=== PATIENT | male | born 1945 | race Caucasian/White ===

== ENCOUNTER 2018-12-16 11:44 | Emergency (ER) | payer OTHER ==
[~2018-12-16] VITALS: Ht 172.7 cm; Wt 111.1 kg
[~2018-12-16 11:44] MED LIST: ALB2.5IS; DOXY100T51; FURO20TA3; IPRA0.035; LEVO75TA42; LISI-646
[2018-12-16 12:59] LABS: Basophils # (auto) 0.1 uL; Basophils % (auto) 0.8 % (0.0-2.0); Eosinophils # (auto) 0.4 uL; Eosinophils % (auto) 2.9 % (0.0-7.0); Hematocrit 47.4 % (41.0-53.0); Hemoglobin 15.1 g/dL (13.5-17.5); Lymphocytes # (auto) 2.6 uL; Lymphocytes % (auto) 20.5 % (10.0-50.0); Mean Corpuscular Hgb Conc. 31.9 g/dL (32.0-36.0); Mean Corpuscular Volume 87.8 fL (80.0-100.0); Monocytes # (auto) 1.2 uL; Monocytes % (auto) 9.7 % (0.0-12.0); Neutrophils # (auto) 8.4 uL; Neutrophils % (auto) 66.1 % (37.0-80.0); Nucleated Red Blood Cells % 0.1 %; Platelet Count (auto) 262 10^3/uL (140-450); Red Cell Distribution Width 14.3 % (11.8-14.3); White Blood Cell 12.7 10^3/uL (4.4-10.8)
[2018-12-16 13:16] LABS: Chloride 105 mmol/L (98-107); Potassium 4.2 mmol/L (3.5-5.1); Sodium 139 mmol/L (136-145)
[2018-12-16 13:25] LABS: Alanine Aminotransferase 23 U/L (16-61); Albumin 3.3 g/dL (3.4-5.0); Alkaline Phosphatase 122 U/L (45-117); Anion Gap 8 (5-15); Aspartate Aminotransferase 10 U/L (15-37); BUN/Creatinine Ratio 22.1; Bilirubin, Total 0.4 mg/dL (0.2-1.0); Blood Urea Nitrogen 29 mg/dL (7-18); Calcium 9.4 mg/dL (8.5-10.1); Carbon Dioxide 26 mmol/L (21-32); GFR African American 69 mL/min; GFR Non-African American 57 mL/min; Glucose 140 mg/dL (74-106); Total Protein 7.3 g/dL (6.4-8.2)
[2018-12-16] MEDS ORDERED: FUROSEMIDE 20 MG/2 ML VIAL IV ONE (15:15)
[2018-12-16 15:58] VITALS: BP 120/57
== END 2018-12-16 16:13 ==
LOC: ER 11:44 → EDBD 11:44 → ER 16:13
DX: R06.03 Acute respiratory distress (principal); I50.9 Heart failure, unspecified; J44.9 Chronic obstructive pulmonary disease, unspecified; I25.2 Old myocardial infarction; Z86.39 Personal history of other endocrine, nutritional and metabolic disease
CPT/HCPCS: 36415; 71045; 80053; 83880; 84484; 85025; 93005; 96374; 99285; J1940

== ENCOUNTER 2020-08-24 15:33 | Emergency (ER) | payer OTHER ==
[~2020-08-24] VITALS: Ht 172.7 cm; Wt 113.4 kg
[~2020-08-24 15:33] MED LIST changes: -LISI-646; +LISI20TA28
[2020-08-24 16:05] VITALS: BP 158/71
[2020-08-24] MEDS ORDERED: METHOCARBAMOL 500 MG TAB PO ONE (16:45)
[2020-08-24] MEDS ORDERED: KETOROLAC TROMETH 60MG/2ML VIAL IM ONE (16:45)
== END 2020-08-24 17:47 | disposition home or self-care (01) ==
LOC: EDBD 15:33 → ER 15:33
DX: M54.16 Radiculopathy, lumbar region (principal); J44.9 Chronic obstructive pulmonary disease, unspecified; E11.9 Type 2 diabetes mellitus without complications; Z79.899 Other long term (current) drug therapy
CPT/HCPCS: 96372; 99283; J1885

== ENCOUNTER 2022-03-14 17:33 | Inpatient (IN) | payer OTHER ==
[~2022-03-14] VITALS: Ht 165.1 cm; Wt 110.0 kg
[2022-03-14 18:31] LABS: Basophils # (auto) 0.2 10 ^3/uL (0-0.2); Basophils % (auto) 1.3 % (0.0-2.0); Eosinophils # (auto) 0.2 10 ^3/uL (0-0.8); Eosinophils % (auto) 1.5 % (0.0-7.0); Hematocrit 45.1 % (41.0-53.0); Hemoglobin 14.3 g/dL (13.5-17.5); Lymphocytes # (auto) 3.2 10 ^3/uL (0.4-5.4); Lymphocytes % (auto) 25.5 % (10.0-50.0); Mean Corpuscular Hemoglobin 27.8 pg (28.0-32.0); Mean Corpuscular Hgb Conc. 31.7 g/dL (32.0-36.0); Mean Corpuscular Volume 87.6 fL (80.0-100.0); Monocytes # (auto) 1.1 10 ^3/uL (0-1.3); Monocytes % (auto) 9.1 % (0.0-12.0); Neutrophils # (auto) 7.8 10 ^3/uL (1.6-8.6); Neutrophils % (auto) 62.6 % (37.0-80.0); Red Blood Cells 5.15 10^6/uL (4.5-5.90); Red Cell Distribution Width 16.2 % (11.8-14.3); White Blood Cell 12.5 10^3/uL (4.4-10.8)
[2022-03-14 18:58] LABS: Albumin 3.4 g/dL (3.4-5.0); Calcium 8.8 mg/dL (8.5-10.1); Magnesium 1.8 mg/dL (1.6-2.6); Potassium 4.5 mmol/L (3.5-5.1)
[2022-03-14 19:01] LABS: Bilirubin, Total 0.4 mg/dL (0.2-1.0); Total Protein 6.5 g/dL (6.4-8.2)
[2022-03-14] MEDS ORDERED: TERBUTALINE SULFATE 1 MG/ML 1ML VIAL SC ONE (23:30)
[2022-03-14] MEDS ORDERED: IPRATROPIUM BROM 0.5 MG/2.5ML INH SOL NEB ONE (23:30)
[2022-03-14] MEDS ORDERED: methylPREDNISolone SOD SUCC 125 MG/2 ML VL IV ONE (23:30)
[2022-03-14] MEDS ORDERED: ALBUTEROL SULF 2.5 MG/0.5ML(0.5%) NEB SOLN NEB ONE (23:30)
[2022-03-15] MEDS ORDERED: DexAMETHasone SOD PHOS 10MG/1ML VIAL INJ ONE (01:06)
[2022-03-15] MEDS ORDERED: AZITHROMYCIN 250 MG TAB PO ONE (01:07)
[2022-03-15] MEDS ORDERED: ALBUTEROL SULF 2.5 MG/0.5ML(0.5%) NEB SOLN NEB ONE (01:45)
[2022-03-15] MEDS ORDERED: cefTRIAXone 1GM/50ML D5W 50 ML IV ONE (02:00)
[2022-03-15] MEDS ORDERED: ONDANSETRON HCL 4 MG/2 ML VIAL IV PRN (02:45)
[2022-03-15] MEDS ORDERED: DEXTROSE (50%) 50ML SYRG IV PRN (02:45)
[2022-03-15] MEDS ORDERED: NITROGLYCERIN 0.4 MG SL TAB SL PRN (02:45)
[2022-03-15] MEDS ORDERED: ACETAMINOPHEN 325 MG TAB PO PRN (02:45)
[2022-03-15] MEDS ORDERED: MORPHINE SULFATE INJ 2 MG/ml SYRG IV PRN (02:45)
[2022-03-15 02:50] VITALS: BP 114/65
[2022-03-15 04:15] LABS: Urine Bacteria NONE SEEN /hpf (None Seen); Urine Blood Negative /uL (Negative); Urine Specific Gravity 1.027 (1.001-1.035); Urine WBC <1 /hpf (0 - 3)
[2022-03-15] MEDS: ALBUTEROL SULF 2.5 MG/0.5ML(0.5%) NEB SOLN NEB SCH ×3 (06:10→18:25)
[2022-03-15] MEDS: LEVOTHYROXINE SODIUM 112 MCG TAB PO SCH (06:57)
[2022-03-15] MEDS: InsuLIN REG 1unit/0.01ml Soln (100units/ml) SC SCH ×4 (06:59→22:30)
[2022-03-15] MEDS: ACCU-CHEK COMFORT CURVE STRIP VI SCH ×4 (07:05→22:25)
[2022-03-15] MEDS: methylPREDNISolone SOD SUCC 125 MG/2 ML VL IV SCH ×2 (09:56→22:14)
[2022-03-15] MEDS: LOSARTAN POTASSIUM 25 MG TAB PO SCH (09:57)
[2022-03-15] MEDS ORDERED: MAGNESIUM SULFATE 1GM/100ML 100 ML IV ONE (14:15)
[2022-03-15 17:00] VITALS: BP 169/78
[2022-03-15] MEDS ORDERED: THROAT LOZENGES(CEPASTAT) MT PRN (18:30)
[2022-03-15] MEDS ORDERED: hydrALAZINE HCL 20 MG/ML VL IV PRN (19:00)
[2022-03-15 22:00] VITALS: BP 106/44
[2022-03-15] MEDS: ATORVASTATIN 20 MG TAB PO SCH (22:14)
[2022-03-15] MEDS: cefTRIAXone 1GM/50ML D5W 50 ML IV SCH (22:18)
[2022-03-16] VITALS (7 sets, daily range): BP systolic 123–161; BP diastolic 54–85
[2022-03-16 05:31] LABS: Albumin 3.2 g/dL (3.4-5.0); Potassium 5.4 mmol/L (3.5-5.1)
[2022-03-16 05:34] LABS: BUN/Creatinine Ratio 33.3; Bilirubin, Total 0.4 mg/dL (0.2-1.0); Total Protein 6.6 g/dL (6.4-8.2)
[2022-03-16] MEDS: LEVOTHYROXINE SODIUM 112 MCG TAB PO SCH (06:20)
[2022-03-16] MEDS: ACCU-CHEK COMFORT CURVE STRIP VI SCH ×4 (06:21→21:34)
[2022-03-16] MEDS: InsuLIN REG 1unit/0.01ml Soln (100units/ml) SC SCH ×4 (06:23→21:51)
[2022-03-16 06:30] LABS: Basophils # (auto) 0 10 ^3/uL (0-0.2); Basophils % (auto) 0.1 % (0.0-2.0); Eosinophils # (auto) 0 10 ^3/uL (0-0.8); Hematocrit 40.1 % (41.0-53.0); Hemoglobin 13.8 g/dL (13.5-17.5); Lymphocytes # (auto) 1.2 10 ^3/uL (0.4-5.4); Lymphocytes % (auto) 9.8 % (10.0-50.0); Mean Corpuscular Hemoglobin 32.7 pg (28.0-32.0); Mean Corpuscular Hgb Conc. 34.4 g/dL (32.0-36.0); Mean Corpuscular Volume 95.2 fL (80.0-100.0); Monocytes # (auto) 0.4 10 ^3/uL (0-1.3); Monocytes % (auto) 3.4 % (0.0-12.0); Neutrophils # (auto) 10.5 10 ^3/uL (1.6-8.6); Neutrophils % (auto) 86.7 % (37.0-80.0); Red Blood Cells 4.21 10^6/uL (4.5-5.90); White Blood Cell 12.1 10^3/uL (4.4-10.8)
[2022-03-16] MEDS: ALBUTEROL SULF 2.5 MG/0.5ML(0.5%) NEB SOLN NEB SCH ×3 (06:41→19:07)
[2022-03-16] MEDS ORDERED: ENOXAPARIN SOD 40 MG/0.4 ML SYRINGE SC SCH (10:00)
[2022-03-16] MEDS: methylPREDNISolone SOD SUCC 125 MG/2 ML VL IV SCH ×2 (10:29→21:34)
[2022-03-16] MEDS: LOSARTAN POTASSIUM 25 MG TAB PO SCH (10:30)
[2022-03-16] MEDS ORDERED: AMIODARONE HCL 200 MG TAB PO ONE (16:00)
[2022-03-16] MEDS: cefTRIAXone 1GM/50ML D5W 50 ML IV SCH (21:33)
[2022-03-16] MEDS: APIXABAN 5 MG TAB PO SCH (21:34)
[2022-03-16] MEDS: ATORVASTATIN 20 MG TAB PO SCH (21:34)
[2022-03-17 05:33] VITALS: BP 124/62
[2022-03-17 05:37] LABS: Calcium 8.7 mg/dL (8.5-10.1)
[2022-03-17 05:46] LABS: Albumin 3.1 g/dL (3.4-5.0); BUN/Creatinine Ratio 35.3; Bilirubin, Total 0.3 mg/dL (0.2-1.0); Total Protein 6.2 g/dL (6.4-8.2)
[2022-03-17 06:26] LABS: Potassium 5.8 mmol/L (3.5-5.1)
[2022-03-17] MEDS: ALBUTEROL SULF 2.5 MG/0.5ML(0.5%) NEB SOLN NEB SCH ×2 (06:30→12:07)
[2022-03-17 06:31] LABS: Basophils # (auto) 0 10 ^3/uL (0-0.2); Basophils % (auto) 0.1 % (0.0-2.0); Eosinophils # (auto) 0 10 ^3/uL (0-0.8); Hematocrit 40.5 % (41.0-53.0); Hemoglobin 13.6 g/dL (13.5-17.5); Lymphocytes # (auto) 0.8 10 ^3/uL (0.4-5.4); Lymphocytes % (auto) 6.9 % (10.0-50.0); Mean Corpuscular Hemoglobin 31.7 pg (28.0-32.0); Mean Corpuscular Hgb Conc. 33.6 g/dL (32.0-36.0); Mean Corpuscular Volume 94.4 fL (80.0-100.0); Monocytes # (auto) 0.5 10 ^3/uL (0-1.3); Monocytes % (auto) 4.6 % (0.0-12.0); Neutrophils % (auto) 88.4 % (37.0-80.0); Nucleated Red Blood Cells % 0.2 %; Red Blood Cells 4.29 10^6/uL (4.5-5.90); Red Cell Distribution Width 16.6 % (11.8-14.3); White Blood Cell 11.3 10^3/uL (4.4-10.8)
[2022-03-17] MEDS: LEVOTHYROXINE SODIUM 112 MCG TAB PO SCH (06:53)
[2022-03-17] MEDS: ACCU-CHEK COMFORT CURVE STRIP VI SCH ×2 (06:53→12:16)
[2022-03-17] MEDS: InsuLIN REG 1unit/0.01ml Soln (100units/ml) SC SCH ×2 (06:55→12:28)
[2022-03-17 08:00] VITALS: BP 125/72
[2022-03-17] MEDS ORDERED: CALCIUM CHL 100MG/ML 1,000 MG in D5W 5% 100 ML IV ONE (08:45)
[2022-03-17] MEDS ORDERED: SODIUM BICARBONATE 8.4 % INJ 50ML VIAL IV ONE (08:45)
[2022-03-17] MEDS ORDERED: AZIT500T66 PO (08:47)
[2022-03-17] MEDS ORDERED: AMIO200T33 PO (08:47)
[2022-03-17] MEDS ORDERED: APIX5TAB PO (08:47)
[2022-03-17] MEDS ORDERED: METH4PAK PO (08:47)
[2022-03-17 09:00] VITALS: BP 125/72
[2022-03-17] MEDS: methylPREDNISolone SOD SUCC 125 MG/2 ML VL IV SCH (09:59)
[2022-03-17] MEDS: APIXABAN 5 MG TAB PO SCH (10:00)
[2022-03-17] MEDS: LOSARTAN POTASSIUM 25 MG TAB PO SCH (10:00)
[2022-03-17] MEDS ORDERED: AMIODARONE HCL 200 MG TAB PO SCH (10:00)
[2022-03-17 13:00] VITALS: BP 149/85
[2022-03-17] MEDS ORDERED: SODIUM ZIRCONIUM CYCL 10 GM PAK PO SCH (14:20)
[2022-03-17 14:45] VITALS: BP 149/85
== END 2022-03-17 15:15 | disposition home or self-care (01) | DRG 871 ==
LOC: ER 17:33 → EDBD 17:33 → TELE 03-15 02:44 → TELE-EAST 03-15 16:53
PROVIDERS: ADMIT Nurse Practitioner; ATTEND Family Medicine
DX: A41.9 Sepsis, unspecified organism (principal); I50.33 Acute on chronic diastolic (congestive) heart failure; J18.9 Pneumonia, unspecified organism; J96.21 Acute and chronic respiratory failure with hypoxia; I13.0 Hypertensive heart and chronic kidney disease with heart failure and stage 1 through stage 4 chronic kidney disease, or unspecified chronic kidney disease; J44.1 Chronic obstructive pulmonary disease with (acute) exacerbation; C34.92 Malignant neoplasm of unspecified part of left bronchus or lung; J44.0 Chronic obstructive pulmonary disease with (acute) lower respiratory infection; N17.9 Acute kidney failure, unspecified; Z68.41 Body mass index [BMI] 40.0-44.9, adult; E11.22 Type 2 diabetes mellitus with diabetic chronic kidney disease; E03.9 Hypothyroidism, unspecified; E11.40 Type 2 diabetes mellitus with diabetic neuropathy, unspecified; E66.01 Morbid (severe) obesity due to excess calories; E78.5 Hyperlipidemia, unspecified; N18.2 Chronic kidney disease, stage 2 (mild); Z20.822 Contact with and (suspected) exposure to COVID-19; I48.0 Paroxysmal atrial fibrillation; E87.5 Hyperkalemia; I25.10 Atherosclerotic heart disease of native coronary artery without angina pectoris; Z92.3 Personal history of irradiation; Z85.118 Personal history of other malignant neoplasm of bronchus and lung; Z85.820 Personal history of malignant melanoma of skin; I25.2 Old myocardial infarction; Z92.21 Personal history of antineoplastic chemotherapy
CPT/HCPCS: 36415; 71045; 80053; 81001; 82962; 83036; 83735; 83880; 84443; 84484; 85025; 85379; 93005; 93306; 93970; 94640; 96365; 96367; 96372; 96375; G0378; J0696; J1100; J1815; J7060

== ENCOUNTER 2022-03-29 03:34 | Emergency (ER) | payer OTHER ==
[~2022-03-29] VITALS: Ht 177.8 cm; Wt 110.0 kg
[~2022-03-29 03:34] MED LIST changes: +AMIO200T33 PO; +APIX5TAB PO; +AZIT500T66 PO; +METH4PAK PO
[2022-03-29] MEDS ORDERED: ALBUTEROL SULF 2.5 MG/0.5ML(0.5%) NEB SOLN NEB ONE ×2 (05:00→10:15)
[2022-03-29] MEDS ORDERED: IPRATROPIUM BROM 0.5 MG/2.5ML INH SOL NEB ONE (05:00)
[2022-03-29] MEDS ORDERED: methylPREDNISolone SOD SUCC 125 MG/2 ML VL IV ONE ×2 (05:00→10:30)
[2022-03-29 05:05] LABS: Basophils # (auto) 0.1 10 ^3/uL (0-0.2); Basophils % (auto) 0.6 % (0.0-2.0); Eosinophils # (auto) 0.2 10 ^3/uL (0-0.8); Eosinophils % (auto) 1.7 % (0.0-7.0); Hematocrit 39.9 % (41.0-53.0); Hemoglobin 13.4 g/dL (13.5-17.5); Lymphocytes # (auto) 1.4 10 ^3/uL (0.4-5.4); Lymphocytes % (auto) 14.6 % (10.0-50.0); Mean Corpuscular Hemoglobin 30.8 pg (28.0-32.0); Mean Corpuscular Hgb Conc. 33.5 g/dL (32.0-36.0); Monocytes # (auto) 0.9 10 ^3/uL (0-1.3); Monocytes % (auto) 9.7 % (0.0-12.0); Neutrophils # (auto) 7.1 10 ^3/uL (1.6-8.6); Neutrophils % (auto) 73.4 % (37.0-80.0); Red Blood Cells 4.34 10^6/uL (4.5-5.90); Red Cell Distribution Width 16.6 % (11.8-14.3); White Blood Cell 9.6 10^3/uL (4.4-10.8)
[2022-03-29] MEDS ORDERED: IOHEXOL 350 MG/ML 100ML IJ ONE (05:17)
[2022-03-29 05:24] LABS: Albumin 2.7 g/dL (3.4-5.0); Calcium 8.5 mg/dL (8.5-10.1); Potassium 4.9 mmol/L (3.5-5.1)
[2022-03-29 05:28] LABS: BUN/Creatinine Ratio 16.7; Bilirubin, Total 0.7 mg/dL (0.2-1.0); Total Protein 5.6 g/dL (6.4-8.2)
[2022-03-29] MEDS ORDERED: InsuLIN REG 1unit/0.01ml Soln (100units/ml) IV ONE (07:00)
[2022-03-29 10:00] VITALS: BP 104/69
[2022-03-29] MEDS ORDERED: PRED20TA2 PO (10:14)
== END 2022-03-29 11:30 | disposition short-term general hospital (02) ==
LOC: EDBD 03:34 → ER 03:38
DX: R07.89 Other chest pain (principal); J44.1 Chronic obstructive pulmonary disease with (acute) exacerbation; C34.90 Malignant neoplasm of unspecified part of unspecified bronchus or lung; I11.0 Hypertensive heart disease with heart failure; I50.9 Heart failure, unspecified; I25.2 Old myocardial infarction; E03.9 Hypothyroidism, unspecified; Z79.2 Long term (current) use of antibiotics; Z79.899 Other long term (current) drug therapy; Z88.8 Allergy status to other drugs, medicaments and biological substances
CPT/HCPCS: 36415; 71045; 71275; 80053; 82962; 84484; 85025; 93005; 94640; 96374; 96376; 99285; J1815; J2930; J7644; Q9967

== ENCOUNTER 2022-04-10 17:24 | Inpatient (IN) | payer OTHER ==
[~2022-04-10] VITALS: Ht 170.2 cm; Wt 113.0 kg
[~2022-04-10 17:24] MED LIST changes: +PRED20TA2 PO
[2022-04-10] MEDS ORDERED: ENOXAPARIN SOD 100 MG/1 ML SYRINGE SC ONE (19:00)
[2022-04-10] MEDS ORDERED: MAGNESIUM SULFATE 1GM/100ML 100 ML IV ONE (19:00)
[2022-04-10] MEDS ORDERED: CEFEPIME 1GM/ 50ML 50 ML IV ONE (19:00)
[2022-04-10] MEDS ORDERED: IPRATROPIUM BROM 0.5 MG/2.5ML INH SOL NEB ONE (19:00)
[2022-04-10] MEDS ORDERED: DexAMETHasone SOD PHOS 10MG/1ML VIAL INJ IV ONE (19:00)
[2022-04-10] MEDS ORDERED: ALBUTEROL SULF 2.5 MG/0.5ML(0.5%) NEB SOLN NEB ONE (19:00)
[2022-04-10] MEDS ORDERED: VANCOMYCIN PER PHARMACY 0 MG IV SCH (19:00)
[2022-04-10 19:05] LABS: Albumin 2.8 g/dL (3.4-5.0); Calcium 7.9 mg/dL (8.5-10.1); Magnesium 1.7 mg/dL (1.6-2.6); Potassium 5.1 mmol/L (3.5-5.1)
[2022-04-10 19:11] LABS: Basophils # (auto) 0.1 10 ^3/uL (0-0.2); Basophils % (auto) 0.8 % (0.0-2.0); Eosinophils # (auto) 0.1 10 ^3/uL (0-0.8); Eosinophils % (auto) 1.8 % (0.0-7.0); Hemoglobin 12.5 g/dL (13.5-17.5); Lymphocytes # (auto) 1.7 10 ^3/uL (0.4-5.4); Lymphocytes % (auto) 19.9 % (10.0-50.0); Mean Corpuscular Hemoglobin 27.9 pg (28.0-32.0); Mean Corpuscular Volume 84.6 fL (80.0-100.0); Monocytes # (auto) 0.9 10 ^3/uL (0-1.3); Monocytes % (auto) 11.1 % (0.0-12.0); Neutrophils # (auto) 5.6 10 ^3/uL (1.6-8.6); Neutrophils % (auto) 66.4 % (37.0-80.0); Nucleated Red Blood Cells % 0.1 %; Red Blood Cells 4.49 10^6/uL (4.5-5.90); Red Cell Distribution Width 17.3 % (11.8-14.3); White Blood Cell 8.4 10^3/uL (4.4-10.8)
[2022-04-10 19:14] LABS: BUN/Creatinine Ratio 14.8; Bilirubin, Total 0.5 mg/dL (0.2-1.0); Total Protein 5.4 g/dL (6.4-8.2)
[2022-04-10] MEDS ORDERED: IOHEXOL 350 MG/ML 100ML IJ ONE (19:51)
[2022-04-10] MEDS ORDERED: VANCOMYCIN 1GM/250ML 250 ML IV ONE (20:00)
[2022-04-10] MEDS: NOREPINEPHRINE 8 MG/250ML KIT 250 ML IV SCH (20:57)
[2022-04-10 22:24] LABS: Urine Bacteria NONE SEEN /hpf (None Seen); Urine Blood Negative /uL (Negative); Urine Mucus FEW (None Seen); Urine WBC 4 /hpf (0 - 3)
[2022-04-10] MEDS ORDERED: SODIUM CHLORIDE 0.9% 1,000 ML IV ONE (22:30)
[2022-04-10 22:40] LABS: Urine Specific Gravity > 1.050 (1.001-1.035)
[2022-04-11] VITALS (13 sets, daily range): BP systolic 104–164; BP diastolic 47–80
[2022-04-11] MEDS ORDERED: ACETAMINOPHEN 325 MG TAB PO PRN (00:30)
[2022-04-11] MEDS ORDERED: IPRATROPIUM BROM 0.5 MG/2.5ML INH SOL NEB PRN (00:30)
[2022-04-11] MEDS ORDERED: DEXTROSE (50%) 50ML SYRG IV PRN ×2 (00:30→13:15)
[2022-04-11] MEDS ORDERED: NITROGLYCERIN 0.4 MG SL TAB SL PRN (00:30)
[2022-04-11] MEDS ORDERED: ONDANSETRON HCL 4 MG/2 ML VIAL IV PRN (00:30)
[2022-04-11] MEDS ORDERED: MORPHINE SULFATE INJ 2 MG/ml SYRG IV PRN (00:30)
[2022-04-11] MEDS: ALBUTEROL SULF 2.5 MG/0.5ML(0.5%) NEB SOLN NEB PRN ×3 (01:41→10:40)
[2022-04-11 04:42] LABS: Basophils # (auto) 0 10 ^3/uL (0-0.2); Basophils % (auto) 0.6 % (0.0-2.0); Eosinophils # (auto) 0 10 ^3/uL (0-0.8); Hematocrit 38.8 % (41.0-53.0); Hemoglobin 12.8 g/dL (13.5-17.5); Lymphocytes # (auto) 0.7 10 ^3/uL (0.4-5.4); Lymphocytes % (auto) 12.3 % (10.0-50.0); Mean Corpuscular Hemoglobin 28.1 pg (28.0-32.0); Mean Corpuscular Volume 85.1 fL (80.0-100.0); Monocytes # (auto) 0.2 10 ^3/uL (0-1.3); Monocytes % (auto) 2.8 % (0.0-12.0); Neutrophils # (auto) 4.7 10 ^3/uL (1.6-8.6); Neutrophils % (auto) 84.3 % (37.0-80.0); Red Blood Cells 4.56 10^6/uL (4.5-5.90); Red Cell Distribution Width 17.4 % (11.8-14.3); White Blood Cell 5.6 10^3/uL (4.4-10.8)
[2022-04-11 05:07] LABS: BUN/Creatinine Ratio 15.8; Calcium 7.6 mg/dL (8.5-10.1); Potassium 5.5 mmol/L (3.5-5.1)
[2022-04-11] MEDS ORDERED: SODIUM CHLORIDE 0.9% 500 ML IV ONE (06:15)
[2022-04-11] MEDS ORDERED: SODIUM ZIRCONIUM CYCL 10 GM PAK PO ONE (06:15)
[2022-04-11] MEDS: ACCU-CHEK COMFORT CURVE STRIP VI SCH ×4 (06:34→22:18)
[2022-04-11] MEDS: InsuLIN REG 1unit/0.01ml Soln (100units/ml) SC SCH ×4 (06:36→22:20)
[2022-04-11] MEDS: AZITHROMYCIN 500MG/ 250ML 250 ML IV SCH (09:19)
[2022-04-11] MEDS: cefTRIAXone 1GM/50ML D5W 50 ML IV SCH (09:19)
[2022-04-11] MEDS ORDERED: PANTOPRAZOLE 40 MG TAB PO SCH (10:00)
[2022-04-11] MEDS: VANCOMYCIN 1GM/250ML 250 ML IV SCH (11:57)
[2022-04-11] MEDS ORDERED: InsuLIN REG 1unit/0.01ml Soln (100units/ml) IV ONE (13:15)
[2022-04-11] MEDS ORDERED: methylPREDNISolone SOD SUCC 125 MG/2 ML VL IV ONE (13:15)
[2022-04-11] MEDS ORDERED: InsuLIN REG 1unit/0.01ml Soln (100units/ml) SC ONE (14:00)
[2022-04-11] MEDS: ALBUTEROL SULF 2.5 MG/0.5ML(0.5%) NEB SOLN NEB SCH ×2 (17:43→21:22)
[2022-04-11] MEDS ORDERED: FUROSEMIDE 100 MG/10ML VIAL IV ONE (18:30)
[2022-04-11] MEDS: methylPREDNISolone SOD SUCC 125 MG/2 ML VL IV SCH (18:54)
[2022-04-11] MEDS: NOREPINEPHRINE 8 MG/250ML KIT 250 ML IV SCH (20:00)
[2022-04-12] VITALS (26 sets, daily range): BP systolic 107–178; BP diastolic 51–95
[2022-04-12] MEDS: ALBUTEROL SULF 2.5 MG/0.5ML(0.5%) NEB SOLN NEB SCH ×6 (02:55→22:35)
[2022-04-12 05:03] LABS: Basophils # (auto) 0 10 ^3/uL (0-0.2); Basophils % (auto) 0.1 % (0.0-2.0); Eosinophils # (auto) 0 10 ^3/uL (0-0.8); Hematocrit 35.5 % (41.0-53.0); Hemoglobin 12.1 g/dL (13.5-17.5); Lymphocytes # (auto) 0.7 10 ^3/uL (0.4-5.4); Lymphocytes % (auto) 9.4 % (10.0-50.0); Mean Corpuscular Hemoglobin 31.6 pg (28.0-32.0); Mean Corpuscular Hgb Conc. 34.1 g/dL (32.0-36.0); Mean Corpuscular Volume 92.8 fL (80.0-100.0); Monocytes # (auto) 0.2 10 ^3/uL (0-1.3); Monocytes % (auto) 2.4 % (0.0-12.0); Neutrophils # (auto) 6.5 10 ^3/uL (1.6-8.6); Neutrophils % (auto) 88.1 % (37.0-80.0); Red Blood Cells 3.82 10^6/uL (4.5-5.90); Red Cell Distribution Width 16.8 % (11.8-14.3); White Blood Cell 7.4 10^3/uL (4.4-10.8)
[2022-04-12 05:13] LABS: Potassium 5.3 mmol/L (3.5-5.1)
[2022-04-12 05:26] LABS: BUN/Creatinine Ratio 18.9; Bilirubin, Total 0.6 mg/dL (0.2-1.0); Total Protein 6.2 g/dL (6.4-8.2)
[2022-04-12] MEDS: methylPREDNISolone SOD SUCC 125 MG/2 ML VL IV SCH ×4 (06:00→19:02)
[2022-04-12] MEDS ORDERED: SODIUM ZIRCONIUM CYCL 10 GM PAK PO ONE (06:15)
[2022-04-12] MEDS: ACCU-CHEK COMFORT CURVE STRIP VI SCH ×4 (06:35→22:28)
[2022-04-12] MEDS: InsuLIN REG 1unit/0.01ml Soln (100units/ml) SC SCH ×4 (06:47→22:27)
[2022-04-12] MEDS: cefTRIAXone 1GM/50ML D5W 50 ML IV SCH (08:18)
[2022-04-12] MEDS: AZITHROMYCIN 500MG/ 250ML 250 ML IV SCH (09:47)
[2022-04-12] MEDS ORDERED: HYDROcodone-ACET 5/325MG TAB PO PRN (12:15)
[2022-04-12] MEDS ORDERED: FUROSEMIDE 20 MG TAB PO ONE (12:15)
[2022-04-12] MEDS ORDERED: CARVEDILOL 3.125 MG TAB PO ONE (12:15)
[2022-04-12] MEDS ORDERED: LEVOTHYROXINE SODIUM 112 MCG TAB PO ONE (12:15)
[2022-04-12] MEDS ORDERED: ASPirin 81 mg TAB PO ONE (12:15)
[2022-04-12] MEDS: VANCOMYCIN 1GM/250ML 250 ML IV SCH ×2 (12:35)
[2022-04-12] MEDS ORDERED: INSULIN LANTUS (GLARGINE) 1 /0.01ml (100units/ml) SC ONE (13:45)
[2022-04-12] MEDS ORDERED: hydrALAZINE HCL 20 MG/ML VL IV PRN (18:45)
[2022-04-12] MEDS: NOREPINEPHRINE 8 MG/250ML KIT 250 ML IV SCH (20:00)
[2022-04-12] MEDS ORDERED: CARVEDILOL 3.125 MG TAB PO SCH (22:00)
[2022-04-12] MEDS: CARVEDILOL 3.125 MG TAB PO SCH (22:26)
[2022-04-12] MEDS: ATORVASTATIN 20 MG TAB PO SCH (22:26)
[2022-04-12] MEDS: INSULIN LANTUS (GLARGINE) 1 /0.01ml (100units/ml) SC SCH (22:28)
[2022-04-13] VITALS (9 sets, daily range): BP systolic 92–165; BP diastolic 25–72
[2022-04-13] MEDS: methylPREDNISolone SOD SUCC 125 MG/2 ML VL IV SCH ×4 (00:23→20:00)
[2022-04-13] MEDS: VANCOMYCIN 1GM/250ML 250 ML IV SCH ×2 (00:23→11:36)
[2022-04-13 04:26] LABS: BUN/Creatinine Ratio 23.4; Calcium 7.8 mg/dL (8.5-10.1); Potassium 4.7 mmol/L (3.5-5.1)
[2022-04-13] MEDS: InsuLIN REG 1unit/0.01ml Soln (100units/ml) SC SCH ×4 (06:48→21:42)
[2022-04-13] MEDS: ACCU-CHEK COMFORT CURVE STRIP VI SCH ×4 (06:49→21:44)
[2022-04-13] MEDS: INSULIN LANTUS (GLARGINE) 1 /0.01ml (100units/ml) SC SCH ×2 (06:49→21:44)
[2022-04-13] MEDS: ALBUTEROL SULF 2.5 MG/0.5ML(0.5%) NEB SOLN NEB SCH ×5 (06:49→22:27)
[2022-04-13] MEDS ORDERED: LEVOTHYROXINE SODIUM 112 MCG TAB PO SCH (07:00)
[2022-04-13] MEDS ORDERED: ISOSORBIDE MONONITRATE ER 60 MG TAB PO SCH (10:00)
[2022-04-13] MEDS ORDERED: FUROSEMIDE 20 MG TAB PO SCH (10:00)
[2022-04-13] MEDS ORDERED: ASPirin 81 mg TAB PO SCH (10:00)
[2022-04-13] MEDS: CARVEDILOL 3.125 MG TAB PO SCH ×2 (11:35→21:41)
[2022-04-13] MEDS: cefTRIAXone 1GM/50ML D5W 50 ML IV SCH (11:36)
[2022-04-13] MEDS: AZITHROMYCIN 500MG/ 250ML 250 ML IV SCH (11:36)
[2022-04-13] MEDS: ATORVASTATIN 20 MG TAB PO SCH (21:40)
[2022-04-14] VITALS (7 sets, daily range): BP systolic 93–165; BP diastolic 53–68
[2022-04-14] MEDS: VANCOMYCIN 1GM/250ML 250 ML IV SCH (01:00)
[2022-04-14] MEDS: methylPREDNISolone SOD SUCC 125 MG/2 ML VL IV SCH (01:00)
== END 2022-04-14 05:10 | disposition short-term general hospital (02) | DRG 189 ==
LOC: ER 17:24 → EDBD 17:24 → EDUNIT# 17:24 → TELE 04-11 00:36 → ICU WEST 04-11 17:04
PROVIDERS: ADMIT Nurse Practitioner; ATTEND Internal Medicine
PROC: 5A09357 Assistance with Respiratory Ventilation, Less than 24 Consecutive Hours, Continuous Positive Airway Pressure (ICD-10-PCS; principal; 2022-04-11)
PROC: 5A0935A Assistance with Respiratory Ventilation, Less than 24 Consecutive Hours, High Flow/Velocity Cannula (ICD-10-PCS; 2022-04-11)
PROC: 5A09357 Assistance with Respiratory Ventilation, Less than 24 Consecutive Hours, Continuous Positive Airway Pressure (ICD-10-PCS; 2022-04-12)
PROC: 5A0935A Assistance with Respiratory Ventilation, Less than 24 Consecutive Hours, High Flow/Velocity Cannula (ICD-10-PCS; 2022-04-12)
PROC: 5A09357 Assistance with Respiratory Ventilation, Less than 24 Consecutive Hours, Continuous Positive Airway Pressure (ICD-10-PCS; 2022-04-13)
PROC: 05HF33Z Insertion of Infusion Device into Left Cephalic Vein, Percutaneous Approach (ICD-10-PCS; 2022-04-13)
PROC: B54NZZA Ultrasonography of Left Upper Extremity Veins, Guidance (ICD-10-PCS; 2022-04-13)
PROC: 5A09357 Assistance with Respiratory Ventilation, Less than 24 Consecutive Hours, Continuous Positive Airway Pressure (ICD-10-PCS; 2022-04-14)
DX: J96.21 Acute and chronic respiratory failure with hypoxia (principal); E43 Unspecified severe protein-calorie malnutrition; J44.1 Chronic obstructive pulmonary disease with (acute) exacerbation; C34.12 Malignant neoplasm of upper lobe, left bronchus or lung; I13.0 Hypertensive heart and chronic kidney disease with heart failure and stage 1 through stage 4 chronic kidney disease, or unspecified chronic kidney disease; N17.9 Acute kidney failure, unspecified; J98.11 Atelectasis; I95.9 Hypotension, unspecified; E11.22 Type 2 diabetes mellitus with diabetic chronic kidney disease; I48.91 Unspecified atrial fibrillation; I50.9 Heart failure, unspecified; E03.9 Hypothyroidism, unspecified; N18.31 Chronic kidney disease, stage 3a; E78.5 Hyperlipidemia, unspecified; Z20.822 Contact with and (suspected) exposure to COVID-19; E87.5 Hyperkalemia; Z79.4 Long term (current) use of insulin; Z85.118 Personal history of other malignant neoplasm of bronchus and lung; Z68.39 Body mass index [BMI] 39.0-39.9, adult; Z92.21 Personal history of antineoplastic chemotherapy; Z92.3 Personal history of irradiation; Z99.81 Dependence on supplemental oxygen; Z88.8 Allergy status to other drugs, medicaments and biological substances
CPT/HCPCS: 36415; 71045; 71275; 80048; 80053; 80202; 81001; 82962; 83605; 83735; 83880; 84484; 85025; 87040; 87081; 87426; 93005; 94640; 94660; 96365; 96367; 96368; 96372; 96375; 99291; G0378; J0696; J1100; J1815

== ENCOUNTER 2022-05-31 08:42 | Inpatient (IN) | payer OTHER ==
[~2022-05-31] VITALS: Ht 170.2 cm; Wt 101.9 kg
[~2022-05-31 08:42] MED LIST changes: -DOXY100T51
[2022-05-31] MEDS ORDERED: methylPREDNISolone SOD SUCC 125 MG/2 ML VL IV ONE (09:00)
[2022-05-31] MEDS ORDERED: ALBUTEROL SULF 2.5 MG/0.5ML(0.5%) NEB SOLN NEB ONE ×2 (09:00→11:00)
[2022-05-31] MEDS ORDERED: cefTRIAXone 1GM/50ML D5W 50 ML IV ONE (09:00)
[2022-05-31 09:39] LABS: Basophils # (auto) 0.1 10 ^3/uL (0-0.2); Eosinophils # (auto) 0.6 10 ^3/uL (0-0.8); Hemoglobin 11.1 g/dL (13.5-17.5); Lymphocytes # (auto) 1.2 10 ^3/uL (0.4-5.4); Mean Corpuscular Volume 85.7 fL (80.0-100.0)
[2022-05-31 09:41] LABS: Basophils % (auto) 0.8 % (0.0-2.0); Eosinophils % (auto) 4.8 % (0.0-7.0); Hematocrit 35.3 % (41.0-53.0); Lymphocytes % (auto) 9.9 % (10.0-50.0); Mean Corpuscular Hgb Conc. 31.5 g/dL (32.0-36.0); Monocytes # (auto) 1.1 10 ^3/uL (0-1.3); Monocytes % (auto) 9.7 % (0.0-12.0); Neutrophils # (auto) 8.8 10 ^3/uL (1.6-8.6); Neutrophils % (auto) 74.8 % (37.0-80.0); Red Blood Cells 4.12 10^6/uL (4.5-5.90); White Blood Cell 11.8 10^3/uL (4.4-10.8)
[2022-05-31 09:55] LABS: INR 1.1 (0.9-1.15); Partial Thromboplastin Time 32.3 sec (24.6-33.4)
[2022-05-31 09:57] LABS: Calcium 8.8 mg/dL (8.5-10.1)
[2022-05-31 10:01] LABS: BUN/Creatinine Ratio 20.9; Bilirubin, Total 0.7 mg/dL (0.2-1.0); Total Protein 6.6 g/dL (6.4-8.2)
[2022-05-31 10:44] LABS: Potassium 5.7 mmol/L (3.5-5.1)
[2022-05-31] MEDS ORDERED: SODIUM ZIRCONIUM CYCL 10 GM PAK PO ONE (11:00)
[2022-05-31] MEDS ORDERED: CALCIUM GLUC 1,000mg/50ml-NS 50 ML IV ONE (11:00)
[2022-05-31] MEDS ORDERED: DEXTROSE (50%) 50ML SYRG IV ONE (11:00)
[2022-05-31] MEDS ORDERED: FUROSEMIDE 20 MG/2 ML VIAL IV ONE (11:00)
[2022-05-31] MEDS ORDERED: SODIUM BICARBONATE 8.4% INJ 50ML SYRINGE IV ONE (11:00)
[2022-05-31] MEDS ORDERED: InsuLIN REG 1unit/0.01ml Soln (100units/ml) IV ONE (11:00)
[2022-05-31 13:25] LABS: Urine Bacteria FEW /hpf (None Seen); Urine Blood Negative /uL (Negative); Urine Hyaline Cast MOD /lpf (0 - 2); Urine Mucus FEW (None Seen); Urine Specific Gravity 1.013 (1.001-1.035); Urine WBC 7 /hpf (0 - 3); Urine WBC Clumps PRESENT /hpf (None Seen)
[2022-05-31] MEDS ORDERED: ALBUTEROL SULF 2.5 MG/0.5ML(0.5%) NEB SOLN NEB PRN (14:45)
[2022-05-31] MEDS ORDERED: DEXTROSE (50%) 50ML SYRG IV PRN (14:45)
[2022-05-31] MEDS ORDERED: ACETAMINOPHEN 325 MG TAB PO PRN (14:45)
[2022-05-31 15:21] LABS: Cholesterol 233 mg/dL (< 200); HDL Cholesterol 43 mg/dL (40-59); LDL Cholesterol 170 mg/dL (< 100); Triglycerides 102 mg/dL (< 150)
[2022-05-31] MEDS: InsuLIN REG 1unit/0.01ml Soln (100units/ml) SC SCH ×2 (17:12→22:06)
[2022-05-31] MEDS: ACCU-CHEK COMFORT CURVE STRIP VI SCH ×2 (17:13→21:28)
[2022-05-31] MEDS ORDERED: IPRATROPIUM BROM 0.5 MG/2.5ML INH SOL NEB SCH (18:00)
[2022-05-31] MEDS: ALBUTEROL SULF 2.5 MG/0.5ML(0.5%) NEB SOLN NEB SCH (18:43)
[2022-05-31 20:00] VITALS: BP 136/70
[2022-05-31] MEDS: methylPREDNISolone SOD SUCC 125 MG/2 ML VL IV SCH (21:27)
[2022-05-31] MEDS ORDERED: FUR20T PO (21:34)
[2022-05-31 22:00] VITALS: BP 124/71
[2022-05-31] MEDS: SODIUM CHLOR 0.9% PF (SALINE LOCK) 10ML VIAL/SYR IV SCH (22:11)
[2022-06-01] MEDS: ALBUTEROL SULF 2.5 MG/0.5ML(0.5%) NEB SOLN NEB SCH ×4 (00:22→18:49)
[2022-06-01 05:00] VITALS: BP 168/89
[2022-06-01] MEDS: SODIUM CHLOR 0.9% PF (SALINE LOCK) 10ML VIAL/SYR IV SCH (06:00)
[2022-06-01 06:08] LABS: Basophils # (auto) 0 10 ^3/uL (0-0.2); Basophils % (auto) 0.2 % (0.0-2.0); Eosinophils # (auto) 0 10 ^3/uL (0-0.8); Hematocrit 35.1 % (41.0-53.0); Hemoglobin 11.4 g/dL (13.5-17.5); Lymphocytes # (auto) 0.8 10 ^3/uL (0.4-5.4); Lymphocytes % (auto) 9.4 % (10.0-50.0); Mean Corpuscular Hemoglobin 27.4 pg (28.0-32.0); Mean Corpuscular Hgb Conc. 32.4 g/dL (32.0-36.0); Mean Corpuscular Volume 84.4 fL (80.0-100.0); Monocytes # (auto) 0.3 10 ^3/uL (0-1.3); Monocytes % (auto) 3.6 % (0.0-12.0); Neutrophils # (auto) 7.3 10 ^3/uL (1.6-8.6); Neutrophils % (auto) 86.8 % (37.0-80.0); Nucleated Red Blood Cells % 0.1 %; Red Blood Cells 4.15 10^6/uL (4.5-5.90); Red Cell Distribution Width 17.2 % (11.8-14.3); White Blood Cell 8.4 10^3/uL (4.4-10.8)
[2022-06-01] MEDS ORDERED: LABETALOL HCL 5 MG/ML 4ML SYRINGE IV ONE (06:15)
[2022-06-01] MEDS: ACCU-CHEK COMFORT CURVE STRIP VI SCH ×4 (06:19→22:09)
[2022-06-01] MEDS: InsuLIN REG 1unit/0.01ml Soln (100units/ml) SC SCH ×4 (06:20→22:18)
[2022-06-01 06:34] LABS: Potassium 4.5 mmol/L (3.5-5.1)
[2022-06-01 06:38] LABS: Albumin 2.9 g/dL (3.4-5.0); BUN/Creatinine Ratio 25.5; Bilirubin, Total 0.4 mg/dL (0.2-1.0); Calcium 9.6 mg/dL (8.5-10.1); Total Protein 7.6 g/dL (6.4-8.2)
[2022-06-01 09:00] VITALS: BP 158/82
[2022-06-01] MEDS ORDERED: cefTRIAXone 1GM/50ML D5W 50 ML IV SCH (09:00)
[2022-06-01] MEDS: methylPREDNISolone SOD SUCC 125 MG/2 ML VL IV SCH (09:05)
[2022-06-01] MEDS ORDERED: ENOXAPARIN SOD 40 MG/0.4 ML SYRINGE SC SCH (10:00)
[2022-06-01] MEDS ORDERED: DOXYCYCLINE 100 MG TAB/CAP PO ONE (10:15)
[2022-06-01] MEDS ORDERED: predniSONE 20 MG TAB PO ONE (10:15)
[2022-06-01] MEDS ORDERED: GABA300C10 PO (11:48)
[2022-06-01] MEDS ORDERED: HYDR1TAB97 PO (11:51)
[2022-06-01] MEDS ORDERED: LEVO88TA2 PO (11:52)
[2022-06-01] MEDS ORDERED: NALO0.4I4 IJ (11:54)
[2022-06-01] MEDS ORDERED: ISOS60TA24 PO (11:56)
[2022-06-01] MEDS ORDERED: CARV3.1240 PO (11:56)
[2022-06-01] MEDS ORDERED: LOSA25TA38 PO (11:58)
[2022-06-01] MEDS ORDERED: APIXABAN 5 MG TAB PO SCH (12:17)
[2022-06-01] MEDS ORDERED: LISINOPRIL 20 MG TAB PO SCH (12:18)
[2022-06-01] MEDS ORDERED: PSEU1TAB PO (12:29)
[2022-06-01] MEDS ORDERED: HYDROcodone-ACET 5/325MG TAB PO PRN (12:45)
[2022-06-01 13:00] VITALS: BP 177/75
[2022-06-01] MEDS: AMIODARONE HCL 200 MG TAB PO SCH (14:26)
[2022-06-01] MEDS: FUROSEMIDE 20 MG TAB PO SCH (14:30)
[2022-06-01 17:00] VITALS: BP 166/108
[2022-06-01 22:00] VITALS: BP 142/85
[2022-06-01] MEDS: CARVEDILOL 3.125 MG TAB PO SCH (22:08)
[2022-06-01] MEDS: DOXYCYCLINE 100 MG TAB/CAP PO SCH (22:08)
[2022-06-01] MEDS: APIXABAN 5 MG TAB PO SCH (22:08)
[2022-06-02] MEDS: ALBUTEROL SULF 2.5 MG/0.5ML(0.5%) NEB SOLN NEB SCH ×3 (00:40→11:54)
[2022-06-02 05:00] VITALS: BP 157/93
[2022-06-02] MEDS: ACCU-CHEK COMFORT CURVE STRIP VI SCH ×2 (06:18→14:11)
[2022-06-02] MEDS: InsuLIN REG 1unit/0.01ml Soln (100units/ml) SC SCH ×2 (06:20→11:30)
[2022-06-02] MEDS ORDERED: LEVOTHYROXINE SODIUM 88 MCG TAB PO SCH (07:00)
[2022-06-02] MEDS: FUROSEMIDE 20 MG TAB PO SCH (09:15)
[2022-06-02] MEDS: APIXABAN 5 MG TAB PO SCH (09:16)
[2022-06-02] MEDS: DOXYCYCLINE 100 MG TAB/CAP PO SCH (09:16)
[2022-06-02] MEDS: AMIODARONE HCL 200 MG TAB PO SCH (09:16)
[2022-06-02] MEDS: CARVEDILOL 3.125 MG TAB PO SCH (09:17)
[2022-06-02] MEDS ORDERED: LOSARTAN POTASSIUM 25 MG TAB PO SCH (10:00)
[2022-06-02] MEDS ORDERED: predniSONE 20 MG TAB PO SCH (10:00)
[2022-06-02] MEDS ORDERED: DOX100T PO (11:56)
[2022-06-02] MEDS ORDERED: PRED20TA2 PO (11:56)
[2022-06-02 12:56] VITALS: BP 145/94
== END 2022-06-02 16:27 | disposition home or self-care (01) | DRG 189 ==
LOC: ER 08:42 → EDBD 08:42 → OVERFLOW 14:47 → CENTRAL 19:46 → TELE-CENTR 06-01 07:24
PROVIDERS: ADMIT Nurse Practitioner Family; ATTEND Student in an Organized Health Care Education/Training Program
PROC: 5A09357 Assistance with Respiratory Ventilation, Less than 24 Consecutive Hours, Continuous Positive Airway Pressure (ICD-10-PCS; principal; 2022-05-31)
DX: J96.21 Acute and chronic respiratory failure with hypoxia (principal); J44.1 Chronic obstructive pulmonary disease with (acute) exacerbation; E46 Unspecified protein-calorie malnutrition; I48.20 Chronic atrial fibrillation, unspecified; I50.32 Chronic diastolic (congestive) heart failure; C34.90 Malignant neoplasm of unspecified part of unspecified bronchus or lung; E87.5 Hyperkalemia; E11.9 Type 2 diabetes mellitus without complications; E66.9 Obesity, unspecified; G47.33 Obstructive sleep apnea (adult) (pediatric); I11.0 Hypertensive heart disease with heart failure; D72.829 Elevated white blood cell count, unspecified; D64.9 Anemia, unspecified; Z20.822 Contact with and (suspected) exposure to COVID-19; R74.01 Elevation of levels of liver transaminase levels; G47.9 Sleep disorder, unspecified; Z68.35 Body mass index [BMI] 35.0-35.9, adult; Z85.118 Personal history of other malignant neoplasm of bronchus and lung; Z92.3 Personal history of irradiation; Z88.8 Allergy status to other drugs, medicaments and biological substances
CPT/HCPCS: 36415; 71045; 80053; 80061; 81001; 82962; 83036; 83880; 84132; 84443; 84484; 85025; 85379; 85610; 85730; 87040; 87426; 93005; 94640; 94660; 96365; 96367; 96375; G0378; J0696; J1815; J3490

== ENCOUNTER 2022-06-20 12:49 | Inpatient (IN) | payer OTHER ==
[~2022-06-20] VITALS: Ht 177.8 cm; Wt 100.0 kg
[~2022-06-20 12:49] MED LIST changes: +CARV3.1240 PO; +DOX100T PO; +FUR20T PO; +GABA300C10 PO; +HYDR1TAB97 PO; +ISOS60TA24 PO; +LEVO88TA2 PO; +LOSA25TA38 PO; +NALO0.4I4 IJ; +PSEU1TAB PO
[2022-06-20] MEDS ORDERED: MIDAZOLAM DRIP 50 mg/50mL 50 ML IV ONE (13:06)
[2022-06-20] MEDS ORDERED: SODIUM BICARBONATE 8.4 % INJ 50ML VIAL IV ONE ×2 (13:13→13:31)
[2022-06-20] MEDS ORDERED: SODIUM BICARBONATE 8.4% INJ 50ML SYRINGE ONE ×3 (13:13→13:38)
[2022-06-20] MEDS: MIDAZOLAM DRIP 50 mg/50mL 50 ML IV SCH ×2 (13:15→17:15)
[2022-06-20] MEDS ORDERED: EPINEPHrine HCL 250 ML IV ONE (13:16)
[2022-06-20] MEDS ORDERED: methylPREDNISolone SOD SUCC 125 MG/2 ML VL IV ONE (13:22)
[2022-06-20] MEDS ORDERED: methylPREDNISolone SOD SUCC 125 MG/2 ML VL ONE (13:22)
[2022-06-20] MEDS ORDERED: ALBUTEROL MEDNEB 2.5 mg/3ml NEB ONE (13:23)
[2022-06-20] MEDS: EPINEPHrine HCL 250 ML IV SCH (13:25)
[2022-06-20] MEDS ORDERED: AMIODARONE 450mg/250ml AE 250 ML IV SCH ×2 (13:30→13:45)
[2022-06-20] MEDS ORDERED: EPINEPHrine HCL 1 MG/10 ML SYRG ONE (13:35)
[2022-06-20] MEDS ORDERED: SODIUM BICARBONATE 50ML VIAL 100 ML in SOD CHL 0.45% 1,000 ML IV ONE (13:38)
[2022-06-20 13:58] LABS: Albumin 2.2 g/dL (3.4-5.0); BUN/Creatinine Ratio 19.8; Calcium 10.8 mg/dL (8.5-10.1); Magnesium 2.8 mg/dL (1.6-2.6); Potassium 4.4 mmol/L (3.5-5.1)
[2022-06-20 14:01] LABS: Bilirubin, Total 0.4 mg/dL (0.2-1.0)
[2022-06-20] MEDS ORDERED: NOREPINEPHRINE 8 MG/250ML KIT 250 ML IV ONE (14:02)
[2022-06-20] MEDS: NOREPINEPHRINE 8 MG/250ML KIT 250 ML IV SCH ×2 (14:15→18:40)
[2022-06-20 14:50] VITALS: BP 110/86
[2022-06-20] MEDS ORDERED: ALBUTEROL SULF 2.5 MG/0.5ML(0.5%) NEB SOLN NEB ONE (15:00)
[2022-06-20 16:12] VITALS: BP 133/48
[2022-06-20 16:28] LABS: Basophils # (auto) 0.1 10 ^3/uL (0-0.2); Basophils % (auto) 0.8 % (0.0-2.0); Eosinophils # (auto) 0.3 10 ^3/uL (0-0.8); Eosinophils % (auto) 2.1 % (0.0-7.0); Hematocrit 36.8 % (41.0-53.0); Hemoglobin 11.1 g/dL (13.5-17.5); Lymphocytes # (auto) 2.5 10 ^3/uL (0.4-5.4); Lymphocytes % (auto) 20.4 % (10.0-50.0); Mean Corpuscular Hemoglobin 27.8 pg (28.0-32.0); Mean Corpuscular Hgb Conc. 30.2 g/dL (32.0-36.0); Mean Corpuscular Volume 92.2 fL (80.0-100.0); Monocytes # (auto) 0.7 10 ^3/uL (0-1.3); Monocytes % (auto) 5.4 % (0.0-12.0); Neutrophils # (auto) 8.9 10 ^3/uL (1.6-8.6); Neutrophils % (auto) 71.3 % (37.0-80.0); Nucleated Red Blood Cells % 0.1 %; Red Blood Cells 3.99 10^6/uL (4.5-5.90); Red Cell Distribution Width 17.5 % (11.8-14.3); White Blood Cell 12.4 10^3/uL (4.4-10.8)
[2022-06-20 16:59] LABS: Urine Bacteria NONE SEEN /hpf (None Seen); Urine Blood 1+ /uL (Negative); Urine Specific Gravity 1.031 (1.001-1.035); Urine WBC 2 /hpf (0 - 3)
[2022-06-20 18:56] VITALS: BP 125/56
[2022-06-20 18:58] VITALS: BP 125/56
[2022-06-20] MEDS: AMIODARONE 450mg/250ml AE 250 ML IV SCH (19:34)
[2022-06-20] MEDS ORDERED: PROPOFOL 100 ML IV ONE (19:56)
[2022-06-20] MEDS: PROPOFOL 100 ML IV SCH (20:00)
[2022-06-20 21:09] VITALS: BP 158/84
[2022-06-20] MEDS ORDERED: MAALOX PLUS or MAALOX 30 ML PO PRN (21:30)
[2022-06-20] MEDS ORDERED: NITROGLYCERIN 0.4 MG SL TAB SL PRN (21:30)
[2022-06-20] MEDS ORDERED: DEXTROSE (50%) 50ML SYRG IV PRN (21:30)
[2022-06-20] MEDS ORDERED: SODIUM CHLORIDE 0.9% 1,000 ML IV SCH (21:30)
[2022-06-20] MEDS ORDERED: LORazepam 0.5 MG TAB PO PRN (21:30)
[2022-06-20] MEDS ORDERED: HYDROcodone-ACET 5/325MG TAB PO PRN (21:30)
[2022-06-20] MEDS ORDERED: MORPHINE SULFATE INJ 2 MG/ml SYRG IV PRN ×2 (21:30)
[2022-06-20] MEDS ORDERED: ACETAMINOPHEN 325 MG TAB PO PRN (21:30)
[2022-06-20] MEDS ORDERED: DOCUSATE SOD 100 MG CAP PO PRN (21:30)
[2022-06-20] MEDS ORDERED: ONDANSETRON HCL 4 MG/2 ML VIAL IV PRN (21:30)
[2022-06-20] MEDS ORDERED: VANCOMYCIN PER PHARMACY 0 MG IV SCH (21:45)
[2022-06-20] MEDS ORDERED: VANCOMYCIN 1GM/250ML 250 ML IV ONE (22:00)
[2022-06-20] MEDS: PIPERACILLIN-TAZOB 3.375GM 100 ML IV SCH ×2 (22:00→22:09)
[2022-06-20 22:07] VITALS: BP 133/68
[2022-06-20] MEDS: methylPREDNISolone SOD SUCC 40 MG/ML VL IV SCH (22:08)
[2022-06-21] VITALS (66 sets, daily range): BP systolic 87–157; BP diastolic 32–97
[2022-06-21] MEDS: ACCU-CHEK COMFORT CURVE STRIP VI SCH ×6 (00:04→20:47)
[2022-06-21] MEDS: InsuLIN REG 1unit/0.01ml Soln (100units/ml) SC SCH ×6 (00:08→20:48)
[2022-06-21] MEDS: INSULIN LANTUS (GLARGINE) 1 /0.01ml (100units/ml) SC SCH ×3 (00:41→22:13)
[2022-06-21] MEDS: PROPOFOL 100 ML IV SCH (05:02)
[2022-06-21] MEDS: MIDAZOLAM DRIP 50 mg/50mL 50 ML IV SCH ×3 (05:02→13:11)
[2022-06-21 06:15] LABS: Potassium 4.8 mmol/L (3.5-5.1)
[2022-06-21 06:16] LABS: Basophils # (auto) 0 10 ^3/uL (0-0.2); Basophils % (auto) 0.3 % (0.0-2.0); Eosinophils # (auto) 0 10 ^3/uL (0-0.8); Eosinophils % (auto) 0.1 % (0.0-7.0); Hematocrit 33.8 % (41.0-53.0); Hemoglobin 10.7 g/dL (13.5-17.5); Lymphocytes # (auto) 0.7 10 ^3/uL (0.4-5.4); Lymphocytes % (auto) 4.6 % (10.0-50.0); Mean Corpuscular Hemoglobin 28.2 pg (28.0-32.0); Mean Corpuscular Hgb Conc. 31.7 g/dL (32.0-36.0); Mean Corpuscular Volume 88.8 fL (80.0-100.0); Monocytes # (auto) 0.4 10 ^3/uL (0-1.3); Monocytes % (auto) 2.5 % (0.0-12.0); Neutrophils % (auto) 92.5 % (37.0-80.0); Nucleated Red Blood Cells % 0.1 %; Red Cell Distribution Width 16.9 % (11.8-14.3); White Blood Cell 15.1 10^3/uL (4.4-10.8)
[2022-06-21] MEDS: PIPERACILLIN-TAZOB 3.375GM 100 ML IV SCH ×3 (06:17→22:00)
[2022-06-21 06:25] LABS: BUN/Creatinine Ratio 21.3; Calcium 8.8 mg/dL (8.5-10.1)
[2022-06-21] MEDS: methylPREDNISolone SOD SUCC 40 MG/ML VL IV SCH ×2 (09:37→21:46)
[2022-06-21] MEDS: NOREPINEPHRINE 8 MG/250ML KIT 250 ML IV SCH (09:38)
[2022-06-21] MEDS: LINEZOLID 600MG/300ML 300 ML IV SCH ×2 (10:00→21:46)
[2022-06-21] MEDS: AMIODARONE 450mg/250ml AE 250 ML IV SCH (10:30)
[2022-06-21] MEDS ORDERED: PANTOPRAZOLE 40 MG/10 ML VIAL INJ IV ONE (13:00)
[2022-06-21] MEDS: EPINEPHrine HCL 250 ML IV SCH ×2 (13:15→23:30)
[2022-06-21] MEDS ORDERED: ENOXAPARIN SOD 40 MG/0.4 ML SYRINGE SC ONE (15:15)
[2022-06-21] MEDS ORDERED: AMIODARONE HCL 200 MG TAB PO ONE (17:15)
[2022-06-21] MEDS: AMIODARONE HCL 200 MG TAB PO SCH (21:47)
[2022-06-21] MEDS ORDERED: EPINEPHrine HCL 250 ML IV ONE (22:53)
[2022-06-21] MEDS ORDERED: AMIODARONE 450mg/250ml AE 250 ML IV ONE (23:02)
[2022-06-21] MEDS ORDERED: AMIODARONE HCL (50 MG/ ML) 3 ML VIAL IV ONE (23:02)
[2022-06-21] MEDS ORDERED: AMIODARONE 450mg/250ml AE 250 ML IV SCH (23:15)
[2022-06-21] MEDS ORDERED: AMIODARONE HCL 150 MG in D5W 5% 100 ML IV ONE (23:15)
[2022-06-21 23:40] LABS: Basophils # (auto) 0.1 10 ^3/uL (0-0.2); Basophils % (auto) 0.3 % (0.0-2.0); Hemoglobin 10.5 g/dL (13.5-17.5); Mean Corpuscular Hemoglobin 27.1 pg (28.0-32.0); Mean Corpuscular Hgb Conc. 30.7 g/dL (32.0-36.0)
[2022-06-21 23:42] LABS: Eosinophils # (auto) 0 10 ^3/uL (0-0.8); Eosinophils % (auto) 0.2 % (0.0-7.0); Hematocrit 34.2 % (41.0-53.0); Lymphocytes # (auto) 5.2 10 ^3/uL (0.4-5.4); Lymphocytes % (auto) 22.8 % (10.0-50.0); Mean Corpuscular Volume 88.4 fL (80.0-100.0); Monocytes # (auto) 0.6 10 ^3/uL (0-1.3); Monocytes % (auto) 2.6 % (0.0-12.0); Neutrophils % (auto) 74.1 % (37.0-80.0); Nucleated Red Blood Cells % 0.3 %; Red Blood Cells 3.87 10^6/uL (4.5-5.90); Red Cell Distribution Width 17.9 % (11.8-14.3); White Blood Cell 22.9 10^3/uL (4.4-10.8)
[2022-06-22] VITALS (80 sets, daily range): BP systolic 86–155; BP diastolic 27–74
[2022-06-22 00:05] LABS: Albumin 1.9 g/dL (3.4-5.0); BUN/Creatinine Ratio 20.3; Calcium 9.8 mg/dL (8.5-10.1); Magnesium 2.5 mg/dL (1.6-2.6); Potassium 4.2 mmol/L (3.5-5.1)
[2022-06-22 00:08] LABS: Bilirubin, Total 0.6 mg/dL (0.2-1.0)
[2022-06-22] MEDS: NOREPINEPHRINE 8 MG/250ML KIT 250 ML IV SCH ×2 (02:11→18:28)
[2022-06-22] MEDS: ACCU-CHEK COMFORT CURVE STRIP VI SCH ×6 (03:58→21:34)
[2022-06-22] MEDS: InsuLIN REG 1unit/0.01ml Soln (100units/ml) SC SCH ×6 (04:04→21:47)
[2022-06-22 05:07] LABS: Basophils # (auto) 0 10 ^3/uL (0-0.2); Basophils % (auto) 0.1 % (0.0-2.0); Eosinophils # (auto) 0 10 ^3/uL (0-0.8); Lymphocytes # (auto) 0.6 10 ^3/uL (0.4-5.4); Mean Corpuscular Volume 86.7 fL (80.0-100.0); Neutrophils % (auto) 93.9 % (37.0-80.0); Nucleated Red Blood Cells % 0.1 %; Red Cell Distribution Width 17.9 % (11.8-14.3)
[2022-06-22 05:09] LABS: Eosinophils % (auto) 0.1 % (0.0-7.0); Hematocrit 35.2 % (41.0-53.0); Lymphocytes % (auto) 2.8 % (10.0-50.0); Mean Corpuscular Hgb Conc. 31.1 g/dL (32.0-36.0); Monocytes # (auto) 0.7 10 ^3/uL (0-1.3); Monocytes % (auto) 3.1 % (0.0-12.0); Neutrophils # (auto) 20.9 10 ^3/uL (1.6-8.6); Red Blood Cells 4.06 10^6/uL (4.5-5.90); White Blood Cell 22.3 10^3/uL (4.4-10.8)
[2022-06-22] MEDS ORDERED: AMIODARONE 450mg/250ml AE 250 ML IV SCH (05:15)
[2022-06-22 05:20] LABS: INR 1.08 (0.9-1.15); Partial Thromboplastin Time 29.6 sec (24.6-33.4)
[2022-06-22 05:23] LABS: Albumin 2.3 g/dL (3.4-5.0); BUN/Creatinine Ratio 21.6; Calcium 9.3 mg/dL (8.5-10.1); Potassium 4.4 mmol/L (3.5-5.1)
[2022-06-22 05:26] LABS: Bilirubin, Total 0.7 mg/dL (0.2-1.0); Total Protein 5.4 g/dL (6.4-8.2)
[2022-06-22] MEDS: PIPERACILLIN-TAZOB 3.375GM 100 ML IV SCH ×2 (06:29→16:14)
[2022-06-22] MEDS ORDERED: ENOXAPARIN SOD 40 MG/0.4 ML SYRINGE SC SCH (10:00)
[2022-06-22] MEDS: LINEZOLID 600MG/300ML 300 ML IV SCH ×2 (10:04→22:54)
[2022-06-22] MEDS: PANTOPRAZOLE 40 MG/10 ML VIAL INJ IV SCH (10:06)
[2022-06-22] MEDS: methylPREDNISolone SOD SUCC 40 MG/ML VL IV SCH ×2 (10:07→22:54)
[2022-06-22] MEDS: AMIODARONE HCL 200 MG TAB PO SCH ×2 (10:08→22:55)
[2022-06-22] MEDS: ASPirin 81 mg TAB PO SCH (10:08)
[2022-06-22] MEDS: INSULIN LANTUS (GLARGINE) 1 /0.01ml (100units/ml) SC SCH (10:32)
[2022-06-22] MEDS ORDERED: CALCIUM CHLOR(10%) 100MG/ML 10ML SYRINGE IV ONE ×2 (11:35→12:42)
[2022-06-22] MEDS ORDERED: EPINEPHrine HCL 1 MG/10 ML SYRG IV ONE ×2 (11:35→12:42)
[2022-06-22] MEDS ORDERED: AMIODARONE HCL (50 MG/ ML) 3 ML VIAL IV ONE (12:42)
[2022-06-22] MEDS: MIDAZOLAM DRIP 50 mg/50mL 50 ML IV SCH (13:15)
[2022-06-22] MEDS: PROPOFOL 100 ML IV SCH (20:00)
[2022-06-22] MEDS ORDERED: INSULIN LANTUS (GLARGINE) 1 /0.01ml (100units/ml) SC SCH (22:00)
[2022-06-22] MEDS ORDERED: ALBUTEROL MEDNEB 2.5 mg/3ml NEB ONE (23:12)
[2022-06-22] MEDS: ALBUTEROL SULF 2.5 MG/0.5ML(0.5%) NEB SOLN NEB PRN (23:17)
[2022-06-22] MEDS: EPINEPHrine HCL 250 ML IV SCH (23:30)
[2022-06-23] VITALS (101 sets, daily range): BP systolic 85–134; BP diastolic 37–69
[2022-06-23] MEDS: PIPERACILLIN-TAZOB 3.375GM 100 ML IV SCH ×4 (00:28→22:00)
[2022-06-23] MEDS: ACCU-CHEK COMFORT CURVE STRIP VI SCH ×6 (00:28→18:24)
[2022-06-23] MEDS: InsuLIN REG 1unit/0.01ml Soln (100units/ml) SC SCH ×5 (00:30→18:28)
[2022-06-23 05:43] LABS: Basophils # (auto) 0 10 ^3/uL (0-0.2); Basophils % (auto) 0.2 % (0.0-2.0); Eosinophils # (auto) 0 10 ^3/uL (0-0.8); Hematocrit 31.6 % (41.0-53.0); Hemoglobin 10.2 g/dL (13.5-17.5); Lymphocytes # (auto) 0.7 10 ^3/uL (0.4-5.4); Lymphocytes % (auto) 4.1 % (10.0-50.0); Mean Corpuscular Hemoglobin 28.2 pg (28.0-32.0); Mean Corpuscular Hgb Conc. 32.4 g/dL (32.0-36.0); Mean Corpuscular Volume 87.3 fL (80.0-100.0); Monocytes # (auto) 0.5 10 ^3/uL (0-1.3); Monocytes % (auto) 3.2 % (0.0-12.0); Neutrophils # (auto) 15.3 10 ^3/uL (1.6-8.6); Neutrophils % (auto) 92.5 % (37.0-80.0); Nucleated Red Blood Cells % 0.2 %; Red Blood Cells 3.62 10^6/uL (4.5-5.90); Red Cell Distribution Width 18.2 % (11.8-14.3); White Blood Cell 16.6 10^3/uL (4.4-10.8)
[2022-06-23 06:12] LABS: Albumin 2.2 g/dL (3.4-5.0); Calcium 8.2 mg/dL (8.5-10.1); Potassium 4.3 mmol/L (3.5-5.1)
[2022-06-23 06:16] LABS: BUN/Creatinine Ratio 15.7; Bilirubin, Total 0.6 mg/dL (0.2-1.0); Total Protein 5.1 g/dL (6.4-8.2)
[2022-06-23] MEDS: ASPirin 81 mg TAB PO SCH (10:46)
[2022-06-23] MEDS: PANTOPRAZOLE 40 MG/10 ML VIAL INJ IV SCH (10:47)
[2022-06-23] MEDS: AMIODARONE HCL 200 MG TAB PO SCH ×2 (10:47→22:32)
[2022-06-23] MEDS: methylPREDNISolone SOD SUCC 40 MG/ML VL IV SCH ×2 (10:47→22:31)
[2022-06-23] MEDS: ENOXAPARIN SOD 30 MG/0.3 ML SYRINGE SC SCH (10:47)
[2022-06-23] MEDS: LINEZOLID 600MG/300ML 300 ML IV SCH ×2 (10:48→22:31)
[2022-06-23] MEDS ORDERED: DEXTROSE (50%) 50ML SYRG IV PRN (11:00)
[2022-06-23] MEDS ORDERED: Glucerna 1.2 Cal 1Liter BOTTLE GT SCH (11:00)
[2022-06-23] MEDS ORDERED: METOCLOPRAMIDE HCL 5MG/ml INJ 2ml VIAL IV ONE (11:00)
[2022-06-23] MEDS ORDERED: LEVOTHYROXINE SODIUM 88 MCG TAB PO ONE (11:15)
[2022-06-23] MEDS: LEVOTHYROXINE SODIUM 88 MCG TAB PO SCH (12:42)
[2022-06-23] MEDS: MIDAZOLAM DRIP 50 mg/50mL 50 ML IV SCH (13:15)
[2022-06-23] MEDS: METOCLOPRAMIDE HCL 5MG/ml INJ 2ml VIAL IV SCH ×2 (14:55→22:31)
[2022-06-23] MEDS ORDERED: BUMETANIDE 2.5mg/10ml (0.25 mg/ml) INJ IV ONE (17:15)
[2022-06-23] MEDS: ALBUTEROL SULF 2.5 MG/0.5ML(0.5%) NEB SOLN NEB PRN ×2 (18:37→22:07)
[2022-06-23] MEDS: PROPOFOL 100 ML IV SCH (20:00)
[2022-06-23] MEDS: INSULIN LANTUS (GLARGINE) 1 /0.01ml (100units/ml) SC SCH (22:41)
[2022-06-23] MEDS: EPINEPHrine HCL 250 ML IV SCH (23:30)
[2022-06-24] VITALS (100 sets, daily range): BP systolic 101–163; BP diastolic 49–76
[2022-06-24] MEDS: ACCU-CHEK COMFORT CURVE STRIP VI SCH ×5 (00:54→23:53)
[2022-06-24] MEDS: InsuLIN REG 1unit/0.01ml Soln (100units/ml) SC SCH ×5 (01:02→23:52)
[2022-06-24] MEDS: ALBUTEROL SULF 2.5 MG/0.5ML(0.5%) NEB SOLN NEB PRN ×2 (02:44→07:05)
[2022-06-24 05:17] LABS: Basophils # (auto) 0.1 10 ^3/uL (0-0.2); Eosinophils # (auto) 0 10 ^3/uL (0-0.8); Nucleated Red Blood Cells % 0.1 %
[2022-06-24 05:19] LABS: Basophils % (auto) 0.3 % (0.0-2.0); Lymphocytes # (auto) 0.6 10 ^3/uL (0.4-5.4); Lymphocytes % (auto) 3.7 % (10.0-50.0); Mean Corpuscular Hemoglobin 30.9 pg (28.0-32.0); Mean Corpuscular Hgb Conc. 33.5 g/dL (32.0-36.0); Mean Corpuscular Volume 92.3 fL (80.0-100.0); Monocytes # (auto) 0.8 10 ^3/uL (0-1.3); Monocytes % (auto) 4.6 % (0.0-12.0); Neutrophils # (auto) 16.2 10 ^3/uL (1.6-8.6); Neutrophils % (auto) 91.4 % (37.0-80.0); Red Blood Cells 2.05 10^6/uL (4.5-5.90); Red Cell Distribution Width 17.2 % (11.8-14.3); White Blood Cell 17.7 10^3/uL (4.4-10.8)
[2022-06-24 05:33] LABS: Calcium 7.6 mg/dL (8.5-10.1); Hemoglobin 6.3 g/dL (13.5-17.5); Potassium 4.8 mmol/L (3.5-5.1)
[2022-06-24 05:36] LABS: Potassium 4.8 mmol/L (3.5-5.1)
[2022-06-24 05:41] LABS: BUN/Creatinine Ratio 15.9; Calcium 7.7 mg/dL (8.5-10.1)
[2022-06-24] MEDS: PIPERACILLIN-TAZOB 3.375GM 100 ML IV SCH ×2 (06:24→14:28)
[2022-06-24] MEDS: METOCLOPRAMIDE HCL 5MG/ml INJ 2ml VIAL IV SCH ×3 (06:24→21:47)
[2022-06-24] MEDS ORDERED: ALBUTEROL MEDNEB 2.5 mg/3ml NEB ONE (07:04)
[2022-06-24 07:17] LABS: Basophils # (auto) 0 10 ^3/uL (0-0.2); Eosinophils # (auto) 0 10 ^3/uL (0-0.8); Hematocrit 30.8 % (41.0-53.0); Hemoglobin 9.8 g/dL (13.5-17.5); Lymphocytes # (auto) 0.5 10 ^3/uL (0.4-5.4); Lymphocytes % (auto) 3.6 % (10.0-50.0); Mean Corpuscular Hemoglobin 27.7 pg (28.0-32.0); Mean Corpuscular Hgb Conc. 31.7 g/dL (32.0-36.0); Mean Corpuscular Volume 87.4 fL (80.0-100.0); Monocytes # (auto) 0.5 10 ^3/uL (0-1.3); Neutrophils # (auto) 12.3 10 ^3/uL (1.6-8.6); Neutrophils % (auto) 92.4 % (37.0-80.0); Nucleated Red Blood Cells % 0.2 %; Red Blood Cells 3.53 10^6/uL (4.5-5.90); Red Cell Distribution Width 17.8 % (11.8-14.3); White Blood Cell 13.3 10^3/uL (4.4-10.8)
[2022-06-24] MEDS: PANTOPRAZOLE 40 MG/10 ML VIAL INJ IV SCH (09:48)
[2022-06-24] MEDS: LINEZOLID 600MG/300ML 300 ML IV SCH ×2 (09:48→23:54)
[2022-06-24] MEDS: methylPREDNISolone SOD SUCC 40 MG/ML VL IV SCH ×2 (09:53→21:47)
[2022-06-24] MEDS: ASPirin 81 mg TAB PO SCH (09:54)
[2022-06-24] MEDS: AMIODARONE HCL 200 MG TAB PO SCH ×2 (09:55→21:48)
[2022-06-24] MEDS: ENOXAPARIN SOD 30 MG/0.3 ML SYRINGE SC SCH (09:55)
[2022-06-24] MEDS: INSULIN LANTUS (GLARGINE) 1 /0.01ml (100units/ml) SC SCH ×2 (10:48→22:11)
[2022-06-24] MEDS: MIDAZOLAM DRIP 50 mg/50mL 50 ML IV SCH (13:15)
[2022-06-24] MEDS: NOREPINEPHRINE 8 MG/250ML KIT 250 ML IV SCH (14:15)
[2022-06-24] MEDS: PROPOFOL 100 ML IV SCH (20:00)
[2022-06-24] MEDS: PIPERACILLIN-TAZOB 2.25GM 50 ML IV SCH (21:47)
[2022-06-24] MEDS: EPINEPHrine HCL 250 ML IV SCH (23:30)
[2022-06-25] VITALS (92 sets, daily range): BP systolic 98–158; BP diastolic 44–74
[2022-06-25 05:34] LABS: Basophils # (auto) 0 10 ^3/uL (0-0.2); Eosinophils # (auto) 0 10 ^3/uL (0-0.8); Hematocrit 30.1 % (41.0-53.0); Hemoglobin 9.8 g/dL (13.5-17.5); Lymphocytes # (auto) 0.4 10 ^3/uL (0.4-5.4); Lymphocytes % (auto) 3.6 % (10.0-50.0); Mean Corpuscular Hemoglobin 28.3 pg (28.0-32.0); Mean Corpuscular Hgb Conc. 32.5 g/dL (32.0-36.0); Mean Corpuscular Volume 86.9 fL (80.0-100.0); Monocytes # (auto) 0.5 10 ^3/uL (0-1.3); Monocytes % (auto) 4.5 % (0.0-12.0); Neutrophils # (auto) 11.2 10 ^3/uL (1.6-8.6); Neutrophils % (auto) 91.9 % (37.0-80.0); Nucleated Red Blood Cells % 0.2 %; Red Blood Cells 3.47 10^6/uL (4.5-5.90); Red Cell Distribution Width 17.3 % (11.8-14.3); White Blood Cell 12.2 10^3/uL (4.4-10.8)
[2022-06-25 05:54] LABS: Albumin 2.2 g/dL (3.4-5.0); BUN/Creatinine Ratio 16.5; Bilirubin, Total 0.6 mg/dL (0.2-1.0); Calcium 7.2 mg/dL (8.5-10.1); Total Protein 5.2 g/dL (6.4-8.2)
[2022-06-25] MEDS: METOCLOPRAMIDE HCL 5MG/ml INJ 2ml VIAL IV SCH ×3 (06:14→22:18)
[2022-06-25] MEDS: ACCU-CHEK COMFORT CURVE STRIP VI SCH ×3 (06:14→17:31)
[2022-06-25] MEDS: InsuLIN REG 1unit/0.01ml Soln (100units/ml) SC SCH ×3 (06:14→17:28)
[2022-06-25] MEDS: LEVOTHYROXINE SODIUM 88 MCG TAB PO SCH (07:00)
[2022-06-25] MEDS: PIPERACILLIN-TAZOB 2.25GM 50 ML IV SCH ×2 (09:35→17:31)
[2022-06-25] MEDS: ENOXAPARIN SOD 30 MG/0.3 ML SYRINGE SC SCH (09:36)
[2022-06-25] MEDS: methylPREDNISolone SOD SUCC 40 MG/ML VL IV SCH ×2 (09:36→22:17)
[2022-06-25] MEDS: PANTOPRAZOLE 40 MG/10 ML VIAL INJ IV SCH (09:36)
[2022-06-25] MEDS: ASPirin 81 mg TAB PO SCH (09:37)
[2022-06-25] MEDS: AMIODARONE HCL 200 MG TAB PO SCH ×2 (09:37→22:00)
[2022-06-25] MEDS: INSULIN LANTUS (GLARGINE) 1 /0.01ml (100units/ml) SC SCH ×2 (09:48→22:20)
[2022-06-25] MEDS ORDERED: ALBUTEROL MEDNEB 2.5 mg/3ml NEB ONE (10:48)
[2022-06-25] MEDS: ALBUTEROL SULF 2.5 MG/0.5ML(0.5%) NEB SOLN NEB PRN (10:50)
[2022-06-25] MEDS: LINEZOLID 600MG/300ML 300 ML IV SCH ×2 (12:23→22:17)
[2022-06-25] MEDS: MIDAZOLAM DRIP 50 mg/50mL 50 ML IV SCH (13:15)
[2022-06-25] MEDS: NOREPINEPHRINE 8 MG/250ML KIT 250 ML IV SCH (14:15)
[2022-06-25] MEDS: PROPOFOL 100 ML IV SCH (20:00)
[2022-06-25] MEDS: EPINEPHrine HCL 250 ML IV SCH (23:30)
[2022-06-26] VITALS (38 sets, daily range): BP systolic 56–141; BP diastolic 34–81
[2022-06-26] MEDS: ACCU-CHEK COMFORT CURVE STRIP VI SCH ×2 (00:30→05:14)
[2022-06-26] MEDS: InsuLIN REG 1unit/0.01ml Soln (100units/ml) SC SCH ×2 (00:31→05:15)
[2022-06-26] MEDS: METOCLOPRAMIDE HCL 5MG/ml INJ 2ml VIAL IV SCH (05:13)
[2022-06-26] MEDS: PIPERACILLIN-TAZOB 2.25GM 50 ML IV SCH (05:14)
[2022-06-26 05:21] LABS: Basophils # (auto) 0 10 ^3/uL (0-0.2); Basophils % (auto) 0.3 % (0.0-2.0); Eosinophils # (auto) 0 10 ^3/uL (0-0.8); Hematocrit 28.7 % (41.0-53.0); Hemoglobin 9.2 g/dL (13.5-17.5); Lymphocytes # (auto) 0.7 10 ^3/uL (0.4-5.4); Lymphocytes % (auto) 5.4 % (10.0-50.0); Mean Corpuscular Hemoglobin 27.5 pg (28.0-32.0); Mean Corpuscular Hgb Conc. 32.2 g/dL (32.0-36.0); Mean Corpuscular Volume 85.3 fL (80.0-100.0); Monocytes # (auto) 0.4 10 ^3/uL (0-1.3); Monocytes % (auto) 3.5 % (0.0-12.0); Neutrophils % (auto) 90.8 % (37.0-80.0); Nucleated Red Blood Cells % 0.1 %; Red Blood Cells 3.36 10^6/uL (4.5-5.90); Red Cell Distribution Width 17.7 % (11.8-14.3); White Blood Cell 12.1 10^3/uL (4.4-10.8)
[2022-06-26 05:40] LABS: BUN/Creatinine Ratio 19.2; Potassium 5.1 mmol/L (3.5-5.1)
[2022-06-26] MEDS ORDERED: LEVOTHYROXINE SODIUM 100 MCG TAB PO SCH (07:00)
[2022-06-26] MEDS: AMIODARONE HCL 200 MG TAB PO SCH (10:00)
[2022-06-26] MEDS: methylPREDNISolone SOD SUCC 40 MG/ML VL IV SCH (10:00)
[2022-06-26] MEDS: INSULIN LANTUS (GLARGINE) 1 /0.01ml (100units/ml) SC SCH (10:00)
[2022-06-26] MEDS: ENOXAPARIN SOD 30 MG/0.3 ML SYRINGE SC SCH (10:00)
[2022-06-26] MEDS: ASPirin 81 mg TAB PO SCH (10:00)
[2022-06-26] MEDS: PANTOPRAZOLE 40 MG/10 ML VIAL INJ IV SCH (10:00)
[2022-06-26] MEDS: LINEZOLID 600MG/300ML 300 ML IV SCH (10:00)
[2022-06-26] MEDS ORDERED: MORPHINE SULFATE INJ 2 MG/ml SYRG IV PRN ×2 (11:00→11:15)
[2022-06-26] MEDS ORDERED: LORazepam 2MG/ML-1ML VIAL IV PRN ×2 (11:00→11:15)
== END 2022-06-26 23:47 | DRG 207 ==
LOC: ER 12:49 → EDBD 12:49 → EDSEX 12:49 → TELE 21:32 → ICU CENTRL 06-21 03:59
PROVIDERS: ADMIT Hospitalist; ATTEND Internal Medicine
PROC: 5A1955Z Respiratory Ventilation, Greater than 96 Consecutive Hours (ICD-10-PCS; principal; 2022-06-20)
PROC: 0BH17EZ Insertion of Endotracheal Airway into Trachea, Via Natural or Artificial Opening (ICD-10-PCS; 2022-06-20)
PROC: 5A12012 Performance of Cardiac Output, Single, Manual (ICD-10-PCS; 2022-06-20)
PROC: 5A2204Z Restoration of Cardiac Rhythm, Single (ICD-10-PCS; 2022-06-21)
DX: J96.01 Acute respiratory failure with hypoxia (principal); J15.6 Pneumonia due to other Gram-negative bacteria; G93.41 Metabolic encephalopathy; N17.0 Acute kidney failure with tubular necrosis; I50.31 Acute diastolic (congestive) heart failure; G93.1 Anoxic brain damage, not elsewhere classified; J44.1 Chronic obstructive pulmonary disease with (acute) exacerbation; J44.0 Chronic obstructive pulmonary disease with (acute) lower respiratory infection; Z66 Do not resuscitate; Z20.822 Contact with and (suspected) exposure to COVID-19; I46.9 Cardiac arrest, cause unspecified; E03.9 Hypothyroidism, unspecified; E11.9 Type 2 diabetes mellitus without complications; E66.01 Morbid (severe) obesity due to excess calories; F17.200 Nicotine dependence, unspecified, uncomplicated; I48.0 Paroxysmal atrial fibrillation; I11.0 Hypertensive heart disease with heart failure; Z88.8 Allergy status to other drugs, medicaments and biological substances; Z92.3 Personal history of irradiation; Z85.118 Personal history of other malignant neoplasm of bronchus and lung; Z79.01 Long term (current) use of anticoagulants; Z68.34 Body mass index [BMI] 34.0-34.9, adult
CPT/HCPCS: 31500; 36415; 36556; 36600; 70450; 71045; 71250; 74176; 80048; 80053; 81001; 82550; 82805; 82962; 83605; 83615; 83735; 83880; 84443; 84484; 85025; 85610; 85730; 87040; 87070; 87081; 87086; 87205; 87426; 92950; 92960; 93005; 93306; 94002; 94003; 94640; 95819; 96361; 96365; 96367; 96375; 99291; C9113; G0378; J0171; J1815; J2250; J2543; J2704; J7060